=== PATIENT | male | born 1975 | race Asian ===

== ENCOUNTER 2016-10-31 16:27 | Emergency (ER) | payer SELFPAY ==
[~2016-10-31] VITALS: Ht 167.6 cm; Wt 70.0 kg
[2016-10-31 16:29] VITALS: BP 129/77; PULSE 84; RESP 16; TEMP 99.1; O2SAT 99
[2016-10-31 17:53] VITALS: BP 130/82; PULSE 101; RESP 16; O2SAT 99
[2016-10-31] MEDS ORDERED: SODIUM CHLORIDE 0.9% FLUSH 10 ML FLUSH IV FLUSH PRN (19:00)
[2016-10-31 19:24] LABS: AUTOMATED NEUTROPHIL # 13.2 TH/MM3 (1.8-7.7); BASOPHIL # 0.1 TH/MM3 (0-0.2); BASOPHIL % 0.6 % (0.0-2.0); EOSINOPHIL % 0.3 % (0.0-4.0); HEMATOCRIT 41.5 % (39.0-51.0); LYMPH % 14.3 % (9.0-44.0); LYMPHOCYTE # 2.4 TH/MM3 (1.0-4.8); MEAN CELL VOLUME 85.6 FL (80.0-100.0); MEAN CORPUSCULAR HEMOGLOBIN 30.5 PG (27.0-34.0); MEAN CORPUSCULAR HGB CONC 35.6 % (32.0-36.0); MONO % 6.2 % (0.0-8.0); NEUT % 78.6 % (16.0-70.0); PLATELET COUNT 222 TH/MM3 (150-450); RED BLOOD COUNT 4.85 MIL/MM3 (4.50-5.90); RED CELL DISTRIBUTION WIDTH 13.5 % (11.6-17.2); WHITE BLOOD COUNT 16.8 TH/MM3 (4.0-11.0)
[2016-10-31 19:26] LABS: HEMO FLAGS AUTO DIFF
[2016-10-31 19:38] LABS: INTERNATIONAL NORMALIZED RATIO 0.9 RATIO; PROTHROMBIN TIME - PATIENT 10.1 SEC (9.8-11.6)
--- NOTE | 2016-10-31 19:45 | RADRPT ---
EXAM DATE/TIME: 10/31/2016 19:13 [place] COMPARISON: No previous studies available for comparison. INDICATIONS : Rectal bleeding for four days IV CONTRAST: 72 cc Omnipaque 350 (iohexol) IV ORAL CONTRAST: No oral contrast ingested. RADIATION DOSE: 11.65 CTDIvol (mGy) MEDICAL HISTORY : hemorrhoids SURGICAL HISTORY : None. ENCOUNTER: Initial ACUITY: 4 - 6 days PAIN SCALE: 3/10 LOCATION: pelvis TECHNIQUE: Volumetric scanning of the pelvis was performed. Using automated exposure control and adjustment of the mA and/or kV according to patient size, radiation dose was kept as low as reasonabl y achievable to obtain optimal diagnostic quality images. DICOM format image data is available elec tronically for review and comparison. FINDINGS: BOWEL/MESENTERY: There are significant inflammatory changes within the pelvis surrounding the rec tawny with inflammatory stranding noted. There are 2 rim enhancing fluid collections along the posterio r and right lateral aspects of the rectum measuring 3 x 2.8 cm in AP and transverse dimension, and 1. 8 x 1.4 cm in AP and transverse dimension respectively on axial image 33. On axial image 36 these syeda ear contiguous along the posterior and lateral aspect of the rectum. The remainder the visualized bow el is unremarkable. BLADDER: There is no wall thickening or mass. RETROPERITONEUM: There is no aneurysm or lymphadenopathy. REPRODUCTIVE: Within normal limits. INGUINAL: There is no lymphadenopathy or hernia. MUSCULOSKELETAL: Within normal limits for patient age. CONCLUSION: Rim-enhancing fluid collections are seen at the level of the rectum with associated inflammatory stra nding. Perirectal abscess suspected. Yoan Hess MD on October 31, 2016 at 19:41 Board Certified Radiologist. This report was verified electronically.
[2016-10-31 19:46] LABS: BICARBONATE 24.9 MEQ/L (21.0-32.0); POTASSIUM 3.8 MEQ/L (3.5-5.1)
[2016-10-31] MEDS ORDERED: IOHEXOL 350 MG/ML 10 ML VIAL (for RAD DIAG) IV ONE (19:57)
--- NOTE | 2016-10-31 19:58 | PD ---
HPI Chief Complaint: GI Complaint Time Seen by Provider: 18:30 Travel History International Travel<30 days: No Contact w/Intl Traveler<30days: No Traveled to known affect area: No History of Present Illness HPI Patient is a 41-year-old male presenting to emergency Department for evaluation of rectal pain and bleeding. Patient has had 2 episodes of bright red blood in his stool over the last 4 days. He reports a history of the same associated with hemorrhoids. He reports the pain today is an 8 out of 10, it's worse than it had been in the past. The last time he had any hemorrhoid issues was 6-7 months ago when he was in [place]. He denies any straining, nausea, vomiting, fever, chills, abdominal pain. He states the rectal pain is constant, worse when he sits. He has been using suppositories that he had been given previously. He denies any significant past medical history, anal intercourse. PFSH Past Medical History Medical History: Denies Significant Hx Gastrointestinal Disorders: Yes (HEMORRHOIDS) Influenza Vaccination: No Past Surgical History Surgical History: No Previous Surgery Social History Alcohol Use: Yes (OCCASIONALLY) Tobacco Use: Yes (1 PPD) Substance Use: No Allergies-Medications (Allergen,Severity, Reaction): Coded Allergies: No Known Allergies (Unverified , 10/31/16) Reported Meds & Prescriptions Reported Meds & Active Scripts Active No Active Prescriptions or Reported Medications Review of Systems Except as stated in HPI: all other systems reviewed are Neg Gastrointestinal: Positive: Other (rectal pain, brb) Physical Exam Narrative GENERAL: Well-developed, well-nourished, alert male. Resting comfortably in no acute distress. SKIN: Focused skin assessment warm/dry. HEAD: Atraumatic. Normocephalic. EYES: Pupils equal and round. No scleral icterus. No injection or drainage. ENT: No nasal bleeding or discharge. Mucous membranes pink and moist. NECK: Trachea midline. No JVD. CARDIOVASCULAR: Regular rate and rhythm. No murmur appreciated. RESPIRATORY: No accessory muscle use. Clear to auscultation. Breath sounds equal bilaterally. GASTROINTESTINAL: Abdomen soft, non-tender, nondistended. Hepatic and splenic margins not palpable. RECTAL EXAM: Tenderness noted on digital examination to the 12 o'clock position , there is a firm palpable area in this position. No dark or tar like stools noted, no obvious hemorrhoids. MUSCULOSKELETAL: No obvious deformities. No clubbing. No cyanosis. No edema. NEUROLOGICAL: Awake and alert. No obvious cranial nerve deficits. Motor grossly within normal limits. Normal speech. PSYCHIATRIC: Appropriate mood and affect; insight and judgment normal. Data Data Last Documented VS Vital Signs Date Time Temp Pulse Resp B/P Pulse Ox O2 Delivery O2 Flow Rate FiO2 10/31/16 17:53 101 16 130/82 99 Room Air 10/31/16 16:29 99.1 Orders Basic Metabolic Panel (Bmp) (10/31/16 18:48) Complete Blood Count With Diff (10/31/16 18:48) Prothrombin Time / Inr (Pt) (10/31/16 18:48) Act Partial Throm Time (Ptt) (10/31/16 18:48) Iv Access Insert/Monitor (10/31/16 18:48) Ecg Monitoring (10/31/16 18:48) Oximetry (10/31/16 18:48) Sodium Chloride 0.9% Flush (Ns Flush) (10/31/16 19:00) Ct Pelvis W Iv Contrast(Rout) (10/31/16 ) Iohexol 350 Inj (Omnipaque 350 Inj) (10/31/16 19:57) Ciprofloxacin 400 Mg Premix (Cipro 400 M (10/31/16 20:15) Metronidazole 500 Mg Inj (Flagyl 500 Mg (10/31/16 20:15) Labs Laboratory Tests Test 10/31/16 18:55 White Blood Count 16.8 TH/MM3 Red Blood Count 4.85 MIL/MM3 Hemoglobin 14.8 GM/DL Hematocrit 41.5 % Mean Corpuscular Volume 85.6 FL Mean Corpuscular Hemoglobin 30.5 PG Mean Corpuscular Hemoglobin 35.6 % Concent Red Cell Distribution Width 13.5 % Platelet Count 222 TH/MM3 Mean Platelet Volume 8.4 FL Neutrophils (%) (Auto) 78.6 % Lymphocytes (%) (Auto) 14.3 % Monocytes (%) (Auto) 6.2 % Eosinophils (%) (Auto) 0.3 % Basophils (%) (Auto) 0.6 % Neutrophils # (Auto) 13.2 TH/MM3 Lymphocytes # (Auto) 2.4 TH/MM3 Monocytes # (Auto) 1.0 TH/MM3 Eosinophils # (Auto) 0.0 TH/MM3 Basophils # (Auto) 0.1 TH/MM3 CBC Comment AUTO DIFF Prothrombin Time 10.1 SEC Prothromb Time International 0.9 RATIO Ratio Activated Partial 30.0 SEC Thromboplast Time Sodium Level 137 MEQ/L Potassium Level 3.8 MEQ/L Chloride Level 105 MEQ/L Carbon Dioxide Level 24.9 MEQ/L Anion Gap 7 MEQ/L Blood Urea Nitrogen 11 MG/DL Creatinine 0.79 MG/DL Estimat Glomerular Filtration 107 ML/MIN Rate Random Glucose 87 MG/DL Calcium Level 8.4 MG/DL [facility] Medical Decision Making Medical Screen Exam Complete: Yes Emergency Medical Condition: Yes Interpretation(s) Last Impressions Pelvis CT 10/31/16 0000 Signed Impressions: Service Date/Time: Monday, October 31, 2016 19:13 - CONCLUSION: Rim-enhancing fluid collections are seen at the level of the rectum with associated inflammatory stranding. Perirectal abscess suspected. Yoan Hess MD Laboratory Tests Test 10/31/16 18:55 White Blood Count 16.8 TH/MM3 Red Blood Count 4.85 MIL/MM3 Hemoglobin 14.8 GM/DL Hematocrit 41.5 % Mean Corpuscular Volume 85.6 FL Mean Corpuscular Hemoglobin 30.5 PG Mean Corpuscular Hemoglobin 35.6 % Concent Red Cell Distribution Width 13.5 % Platelet Count 222 TH/MM3 Mean Platelet Volume 8.4 FL Neutrophils (%) (Auto) 78.6 % Lymphocytes (%) (Auto) 14.3 % Monocytes (%) (Auto) 6.2 % Eosinophils (%) (Auto) 0.3 % Basophils (%) (Auto) 0.6 % Neutrophils # (Auto) 13.2 TH/MM3 Lymphocytes # (Auto) 2.4 TH/MM3 Monocytes # (Auto) 1.0 TH/MM3 Eosinophils # (Auto) 0.0 TH/MM3 Basophils # (Auto) 0.1 TH/MM3 CBC Comment AUTO DIFF Vital Signs Date Time Temp Pulse Resp B/P Pulse Ox O2 Delivery O2 Flow Rate FiO2 10/31/16 17:53 101 16 130/82 99 Room Air 10/31/16 16:29 99.1 84 16 129/77 99 Differential Diagnosis Hemorrhoid versus GI bleed versus abscess versus other Narrative Course Patient is a 38-year-old male presenting to emergency for evaluation of rectal pain. Patient's vital signs are stable, on exam there was noted to be an area of fluctuance which prompted imaging. CBC with an elevated white count at 16.8 with left shift, chemistry and coags are unremarkable. CT scan of the pelvis shows premature changes within the pelvis surrounding the rectum with inflammatory stranding noted. There are 2 women enhancing fluid collections along the posterior and right lateral aspects of the rectum measuring 3 x 2.8 cm and 1.8 x 1.4 cm. They appear contiguous along the posterior lateral aspect of the rectum. Patient was given dose of IV metronidazole and ciprofloxacin. Discussed with general surgery who recommended patient follow-up with colorectal surgeon. Patient will be referred to colorectal surgery as outpatient. A mandatory referral has been made for patient. He was also given a short course of oral pain medications. Patient verbalized understanding of discharge instructions, follow-up, medications. He was advised to return to emergency department immediately for any new or worsening symptoms. Patient is stable for discharge. Diagnosis Primary Impression: Perirectal abscess Referrals: Colon Rectal Specialist 1 day Patient Instructions: General Instructions, Rectal Abscess (ED) Additional Instructions: Follow up with a colorectal surgeon A mandatory referral has been made for you Complete full course of antibiotics as prescribed Return to emergency department for any new or worsening symptoms Med/Other Pt SpecificInfo: Prescription(s) given Scripts Tramadol 50 Mg Tab50 Mg PO Q8H PRN (PAIN) #10 TAB Ref 0 Prov:Jose Rojas MD 10/31/16 Ciprofloxacin 500 Mg [id number] Mg PO BID 10 Days Ref 0 Prov:Beatris No 10/31/16 Metronidazole 500 Mg [id number] Mg PO TID 10 Days Ref 0 Prov:Beatris No 10/31/16 Disposition: 01 DISCHARGE HOME Condition: Stable Beatris No Oct 31, 2016 19:58
[2016-10-31] MEDS ORDERED: metroNIDAZOLE 500 MG INJ 100 ML IV ONE (20:15)
[2016-10-31] MEDS ORDERED: CIPROFLOXACIN 400 MG PREMIX 200 ML IV ONE (20:15)
[2016-10-31] MEDS ORDERED: CIPR500T2 PO (20:16)
[2016-10-31] MEDS ORDERED: METR500T10 PO (20:16)
[2016-10-31] MEDS ORDERED: TRAM50TA PO (20:16)
[2016-10-31 20:24] LABS: SCAN/DIFF AUTO DIFF CONFIRMED
--- NOTE | 2016-10-31 20:39 | PD ---
Data Data Last Documented VS Vital Signs Date Time Temp Pulse Resp B/P Pulse Ox O2 Delivery O2 Flow Rate FiO2 10/31/16 17:53 101 16 130/82 99 Room Air 10/31/16 16:29 99.1 Orders Basic Metabolic Panel (Bmp) (10/31/16 18:48) Complete Blood Count With Diff (10/31/16 18:48) Prothrombin Time / Inr (Pt) (10/31/16 18:48) Act Partial Throm Time (Ptt) (10/31/16 18:48) Iv Access Insert/Monitor (10/31/16 18:48) Ecg Monitoring (10/31/16 18:48) Oximetry (10/31/16 18:48) Sodium Chloride 0.9% Flush (Ns Flush) (10/31/16 19:00) Ct Pelvis W Iv Contrast(Rout) (10/31/16 ) Iohexol 350 Inj (Omnipaque 350 Inj) (10/31/16 19:57) Ciprofloxacin 400 Mg Premix (Cipro 400 M (10/31/16 20:15) Metronidazole 500 Mg Inj (Flagyl 500 Mg (10/31/16 20:15) Mandatory Outpatient Referral (10/31/16 20:17) Labs Laboratory Tests Test 10/31/16 18:55 White Blood Count 16.8 TH/MM3 Red Blood Count 4.85 MIL/MM3 Hemoglobin 14.8 GM/DL Hematocrit 41.5 % Mean Corpuscular Volume 85.6 FL Mean Corpuscular Hemoglobin 30.5 PG Mean Corpuscular Hemoglobin 35.6 % Concent Red Cell Distribution Width 13.5 % Platelet Count 222 TH/MM3 Mean Platelet Volume 8.4 FL Neutrophils (%) (Auto) 78.6 % Lymphocytes (%) (Auto) 14.3 % Monocytes (%) (Auto) 6.2 % Eosinophils (%) (Auto) 0.3 % Basophils (%) (Auto) 0.6 % Neutrophils # (Auto) 13.2 TH/MM3 Lymphocytes # (Auto) 2.4 TH/MM3 Monocytes # (Auto) 1.0 TH/MM3 Eosinophils # (Auto) 0.0 TH/MM3 Basophils # (Auto) 0.1 TH/MM3 CBC Comment AUTO DIFF Differential Comment AUTO DIFF CONFIRMED Prothrombin Time 10.1 SEC Prothromb Time International 0.9 RATIO Ratio Activated Partial 30.0 SEC Thromboplast Time Sodium Level 137 MEQ/L Potassium Level 3.8 MEQ/L Chloride Level 105 MEQ/L Carbon Dioxide Level 24.9 MEQ/L Anion Gap 7 MEQ/L Blood Urea Nitrogen 11 MG/DL Creatinine 0.79 MG/DL Estimat Glomerular Filtration 107 ML/MIN Rate Random Glucose 87 MG/DL Calcium Level 8.4 MG/DL MDM Supervised Visit with NIKOLE: Yes Narrative Course The history, exam, and medical decision-making in the associated mid-level provider note were completed with my assistance. I reviewed and agree with the findings presented. I attest that I had a [id number] encounter with the patient on the same day, and personally performed and documented my assessment and findings in the medical record. *My assessment and Findings: 41-year-old man: Well-appearing, or perirectal abscess. Little bit of bleeding and pain. CT scan from small perirectal abscess. I spoke with Dr. Leonardo camarena through a proxy as he was operating at the time. 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 There is no on-call for colorectal. He states perirectal abscesses or not in his purview. We'll treat with antibiotics. We'll recommend a referral for colorectal surgery. Diagnosis Primary Impression: Perirectal abscess Referrals: Colon Rectal Specialist 1 day Patient Instructions: General Instructions, Rectal Abscess (ED) Additional Instruction: Follow up with a colorectal surgeon A mandatory referral has been made for you Complete full course of antibiotics as prescribed Return to emergency department for any new or worsening symptoms Scripts Tramadol 50 Mg Tab50 Mg PO Q8H PRN (PAIN) #10 TAB Ref 0 Prov:Jose Rojas MD 10/31/16 Ciprofloxacin 500 Mg [id number] Mg PO BID 10 Days Ref 0 Prov:Beatris No 10/31/16 Metronidazole 500 Mg [id number] Mg PO TID 10 Days Ref 0 Prov:Beatris No 10/31/16 Disposition: 01 DISCHARGE HOME Condition: Stable Jose Rojas MD Oct 31, 2016 20:39
[2016-10-31 22:00] VITALS: BP 124/68; PULSE 82; RESP 16; O2SAT 98
[2016-10-31] MEDS ORDERED: ACETAMINOPHEN/HYDROcodone 325 MG/5 MG TAB PO ONE (22:45)
== END 2016-10-31 22:48 | disposition home or self-care (01) ==
LOC: NEPE 16:27
DX: K61.1 Rectal abscess (principal); K92.1 Melena
CPT/HCPCS: 72193; 80048; 85025; 85610; 85730; 96365; 96367; 99285; J0744; Q9967

== ENCOUNTER 2016-11-04 08:11 | Inpatient (IN) | payer SELFPAY ==
[~2016-11-04] VITALS: Ht 170.2 cm; Wt 70.0 kg
[~2016-11-04 08:11] MED LIST: CIPR500T2 PO; METR500T10 PO; TRAM50TA PO
[2016-11-04 08:15] VITALS: BP 124/77; PULSE 95; RESP 16; TEMP 98.3; O2SAT 98
--- NOTE | 2016-11-04 08:58 | PD ---
HPI Chief Complaint: Complaint Time Seen by Provider: 08:41 Travel History International Travel<30 days: No Contact w/Intl Traveler<30days: No Traveled to known affect area: No History of Present Illness HPI This is a 41-year-old male who presents with complaints of rectal pain. The patient was seen here Monday and diagnosed with a rectal abscess. The patient was given antibiotics and pain medication. He reports that it's gotten worse and now he is having difficulty having bowel movement and urinating. He reports subjective fevers, no chills. He denies any nausea vomiting. He states she's taken all his medications as prescribed. He states now he is not able to sit secondary to the severe pain. PFSH Past Medical History Gastrointestinal Disorders: Yes (HEMORRHOIDS) Social History Alcohol Use: Yes (OCCASIONALLY) Tobacco Use: Yes (1 PPD) Substance Use: No Allergies-Medications (Allergen,Severity, Reaction): Coded Allergies: No Known Allergies (Unverified , 10/31/16) Reported Meds & Prescriptions Reported Meds & Active Scripts Active Tramadol (Tramadol HCl) 50 Mg Tab 50 Mg PO Q8H PRN Ciprofloxacin (Ciprofloxacin HCl) 500 Mg Tab 500 Mg PO BID 10 Days Metronidazole 500 Mg Tab 500 Mg PO TID 10 Days Review of Systems Except as stated in HPI: all other systems reviewed are Neg General / Constitutional: Positive: Fever, No: Chills HENT: No: Headaches, Lightheadedness Cardiovascular: No: Chest Pain or Discomfort, Palpitations Respiratory: No: Cough, Shortness of Breath Gastrointestinal: Positive: Changes in Bowel Habits (occultly having bowel movements), Other (rectal pain. Worse on the right perirectal area.), No: Nausea, Vomiting Genitourinary: Positive: Other (difficulty urinating secondary to the pain.) Musculoskeletal: No: Weakness, Pain Skin: No Rash Neurologic: No: Weakness, Dizziness, Headache Physical Exam Narrative GENERAL: Well-nourished, well-developed patient, in no acute respiratory distress. SKIN: Focused skin assessment warm/dry. HEAD: Normocephalic/atraumatic. EYES: No scleral icterus. No injection or drainage. NECK: Supple, trachea midline. CARDIOVASCULAR: Regular rate and rhythm without murmurs, gallops, or rubs. RESPIRATORY: Breath sounds equal bilaterally. No accessory muscle use. GASTROINTESTINAL: Abdomen soft, non-tender, nondistended. RECTAL EXAM: No obvious induration. The patient does have tenderness in his right buttock cheek near his rectum. He reports these pain is severe and internally. He asked side not do a rectal exam secondary to severe pain. MUSCULOSKELETAL: No cyanosis, or edema. BACK: Nontender without obvious deformity. No CVA tenderness. NEUROLOGICAL: Awake and alert. Cranial nerves II through XII intact. Motor grossly within normal limits. Five out of 5 muscle strength in all muscle groups. Normal speech. Data Data Last Documented VS Vital Signs Date Time Temp Pulse Resp B/P Pulse Ox O2 Delivery O2 Flow Rate FiO2 11/04/16 08:15 98.3 95 16 124/77 98 Orders Complete Blood Count With Diff (11/04/16 08:43) Basic Metabolic Panel (Bmp) (11/04/16 08:43) Prothrombin Time / Inr (Pt) (11/04/16 08:43) Act Partial Throm Time (Ptt) (11/04/16 08:43) Blood Culture (11/04/16 08:43) Levofloxacin 500 Mg Premix Inj (Levaquin (11/04/16 09:00) Metronidazole 500 Mg Inj (Flagyl 500 Mg (11/04/16 09:00) Labs Laboratory Tests Test 11/04/16 08:50 White Blood Count 15.9 TH/MM3 Red Blood Count 4.90 MIL/MM3 Hemoglobin 14.5 GM/DL Hematocrit 41.8 % Mean Corpuscular Volume 85.3 FL Mean Corpuscular Hemoglobin 29.6 PG Mean Corpuscular Hemoglobin 34.7 % Concent Red Cell Distribution Width 13.4 % Platelet Count 248 TH/MM3 Mean Platelet Volume 8.2 FL Neutrophils (%) (Auto) 82.7 % Lymphocytes (%) (Auto) 8.5 % Monocytes (%) (Auto) 8.5 % Eosinophils (%) (Auto) 0.1 % Basophils (%) (Auto) 0.2 % Neutrophils # (Auto) 13.2 TH/MM3 Lymphocytes # (Auto) 1.4 TH/MM3 Monocytes # (Auto) 1.4 TH/MM3 Eosinophils # (Auto) 0.0 TH/MM3 Basophils # (Auto) 0.0 TH/MM3 CBC Comment DIFF FINAL Differential Comment Prothrombin Time 11.6 SEC Prothromb Time International 1.0 RATIO Ratio Activated Partial 31.0 SEC Thromboplast Time Sodium Level 133 MEQ/L Potassium Level 3.4 MEQ/L Chloride Level 99 MEQ/L Carbon Dioxide Level 22.0 MEQ/L Anion Gap 12 MEQ/L Blood Urea Nitrogen 8 MG/DL Creatinine 0.84 MG/DL Estimat Glomerular Filtration 100 ML/MIN Rate Random Glucose 115 MG/DL Calcium Level 8.6 MG/DL MDM Medical Decision Making Medical Screen Exam Complete: Yes Emergency Medical Condition: Yes Differential Diagnosis Worsening perianal abscess versus internal hemorrhoid versus anal fissure Narrative Course 0-2[age] male presents today with complaints of worsening rectal pain. The patient was diagnosed with a perirectal abscess on Monday. He started on Flagyl and ciprofloxacin. He reports the pain has continued to worsen. He reports now he is having difficulty having a bowel movement or urinating secondary to the pain. He reports subjective fevers. No chills. The patient has a white count of 15,000. CT scan for Monday showed a ring-enhancing perirectal abscess. Case was discussed with Dr. Reyes who was gracious enough to come in to see the patient and will take the patient to the operating room. The patient has been given Levaquin and Flagyl. He is nothing by mouth. Diagnosis Primary Impression: perirectal abscess, failed outpatient treatment Additional Impressions: Leukocytosis Hypokalemia Admitting Information Admitting Physician Requests: Admit Aren Degroot MD Nov 04, 2016 08:57
[2016-11-04] MEDS ORDERED: LEVOFLOXACIN 500 MG PREMIX INJ 100 ML IV ONE (09:00)
[2016-11-04] MEDS ORDERED: metroNIDAZOLE 500 MG INJ 100 ML IV ONE (09:00)
[2016-11-04 09:07] LABS: AUTOMATED NEUTROPHIL # 13.2 TH/MM3 (1.8-7.7); BASOPHIL % 0.2 % (0.0-2.0); EOSINOPHIL % 0.1 % (0.0-4.0); HEMATOCRIT 41.8 % (39.0-51.0); HEMO FLAGS DIFF FINAL; LYMPH % 8.5 % (9.0-44.0); LYMPHOCYTE # 1.4 TH/MM3 (1.0-4.8); MEAN CELL VOLUME 85.3 FL (80.0-100.0); MEAN CORPUSCULAR HEMOGLOBIN 29.6 PG (27.0-34.0); MEAN CORPUSCULAR HGB CONC 34.7 % (32.0-36.0); MONO % 8.5 % (0.0-8.0); NEUT % 82.7 % (16.0-70.0); PLATELET COUNT 248 TH/MM3 (150-450); RED CELL DISTRIBUTION WIDTH 13.4 % (11.6-17.2); WHITE BLOOD COUNT 15.9 TH/MM3 (4.0-11.0)
[2016-11-04 09:17] LABS: PROTHROMBIN TIME - PATIENT 11.6 SEC (9.8-11.6)
[2016-11-04 09:34] LABS: POTASSIUM 3.4 MEQ/L (3.5-5.1)
[2016-11-04] MEDS ORDERED: PROPOFOL 200 MG/20 ML AMP IV ONE (12:00)
[2016-11-04] MEDS ORDERED: ONDANSETRON HCL 4 MG/2 ML VIAL IV PUSH ONE (12:00)
[2016-11-04] MEDS ORDERED: KETOROLAC TROMETHAMINE 60 MG/2 ML (IM) VIAL IM ONE (12:00)
[2016-11-04] MEDS ORDERED: FAMOTIDINE 20 MG/2 ML VIAL ONE (14:47)
[2016-11-04] MEDS ORDERED: MIDAZOLAM HCL 2 MG/2 ML VIAL ONE (14:47)
[2016-11-04] MEDS ORDERED: DO NOT ADM ANY ANTICOAGULANT DRUGS PRN (15:36)
[2016-11-04] MEDS ORDERED: fentaNYL CITRATE 250 MCG/5 ML AMP ONE (15:40)
[2016-11-04] MEDS ORDERED: ONDANSETRON HCL 4 MG/2 ML VIAL IV PRN (15:45)
[2016-11-04] MEDS ORDERED: MORPHINE SULFATE 4 MG/ML INJ IV PRN (15:45)
[2016-11-04] MEDS ORDERED: NALOXONE HCL 0.4 MG/ML AMP IV PRN (15:45)
[2016-11-04] MEDS ORDERED: SODIUM CHLORIDE 0.9% FLUSH 10 ML FLUSH IV FLUSH PRN (15:45)
[2016-11-04] MEDS ORDERED: Post-op Orders (for Pharmacy) MISC XX ONE (15:45)
[2016-11-04] MEDS ORDERED: *MEPERIDINE 25 MG INJ VIAL PERIprocedural Use ONLY ONE (15:46)
[2016-11-04 16:48] VITALS: BP 119/74; PULSE 116; RESP 17; TEMP 98.7; O2SAT 96
[2016-11-04] MEDS: metroNIDAZOLE 500 MG INJ 100 ML IV SCH (17:12)
[2016-11-04 20:00] VITALS: BP 89/50; PULSE 110; RESP 20; TEMP 97.5; O2SAT 95
[2016-11-04] MEDS: SODIUM CHLORIDE 0.9% FLUSH 10 ML FLUSH IV FLUSH SCH (20:41)
[2016-11-04 20:43] VITALS: O2SAT 96
[2016-11-05] VITALS: BP 96/55; PULSE 92; RESP 20; TEMP 100.7; O2SAT 97
[2016-11-05] MEDS: metroNIDAZOLE 500 MG INJ 100 ML IV SCH ×2 (01:21→10:30)
[2016-11-05] MEDS: oxyCODONE/ACETAMINOPHEN 5 MG/325 MG TAB PO PRN ×3 (01:21→16:33)
[2016-11-05 08:19] VITALS: BP 107/72; PULSE 88; RESP 16; TEMP 98.7; O2SAT 98
[2016-11-05] MEDS: SODIUM CHLORIDE 0.9% FLUSH 10 ML FLUSH IV FLUSH SCH (09:00)
[2016-11-05 09:32] VITALS: O2SAT 99
[2016-11-05] MEDS ORDERED: LEVOFLOXACIN 500 MG PREMIX INJ 100 ML IV SCH (10:00)
[2016-11-05 12:00] VITALS: BP 104/61; PULSE 78; RESP 16; TEMP 97.7; O2SAT 96
[2016-11-05] MEDS ORDERED: OXYC1TAB63 PO (13:51)
[2016-11-05] MEDS ORDERED: AUGM875T3 PO (13:53)
[2016-11-05] MEDS ORDERED: METR-1 PO (13:56)
--- NOTE | 2016-11-05 15:11 | PD.CAR.PN ---
CVT Progress Note Subjective/Hospital Course: Patient is status post large perirectal abscess drainage Packing has been removed Incision is clean and with minimal drainage Purulent drainage will continue for another few days because this was a big cavity filled with pus Patient will be discharged today with instructions to take sitz baths on by mouth antibiotics and pain medication Follow-up with me in about 2 weeks Objective: Vital Signs Date Time Temp Pulse Resp B/P Pulse Ox O2 Delivery O2 Flow Rate FiO2 11/05/16 12:00 97.7 78 16 104/61 96 11/05/16 09:32 99 21 11/05/16 08:19 98.7 88 16 107/72 98 11/05/16 00:00 100.7 92 20 96/55 97 11/04/16 20:43 96 21 11/04/16 20:00 97.5 110 20 89/50 95 11/04/16 16:48 98.7 116 17 119/74 96 11/04/16 16:27 16 11/04/16 16:25 99.5 105 16 138/87 97 Room Air 11/04/16 16:15 98 16 149/88 96 Room Air 11/04/16 16:00 99 16 163/99 98 Nasal Cannula 2 11/04/16 15:45 105 17 158/99 100 Nasal Cannula 3 11/04/16 15:35 99.2 113 18 128/84 99 Nasal Cannula 3 Result Diagram: 11/04/16 0850 11/04/16 0850 Judy Reyes MD Nov 05, 2016 15:10
[2016-11-05 16:00] VITALS: BP 106/64; PULSE 81; RESP 16; TEMP 97.8; O2SAT 96
--- NOTE | 2016-11-05 16:02 | MH ---
cc: MD MELINDA,JUDY DATE OF ADMISSION: 11/04/2016 ADMITTING DIAGNOSIS: Perirectal abscess, rectal pain. HISTORY OF PRESENT ILLNESS: This 41-year-old male presented to the emergency room with pain in the buttock and the rectum as well as difficulty voiding. He states that this has been going on now for about a week. He initially presented five days ago to the same emergency room and was noted to have a small perirectal abscess and was placed on p.o. antibiotics, which should have been sufficient yet this got bigger and now the patient has more problems. Repeat CT scan reveals a large abscess located in the retrorectal space just above midline and slightly to the left just below the levator level. I am consulted to see the patient for the same purpose. PAST MEDICAL AND SURGICAL HISTORY: Negative. ALLERGIES: No allergies. MEDICATIONS: No medications. SOCIAL HISTORY: His social history is noncontributory. The patient works as a croupier in a gambling establishment. PHYSICAL EXAMINATION: GENERAL: The physical examination reveals 41-year-old male in no acute distress. HEAD, EYES, EARS, NOSE, THROAT: Normocephalic. No trauma to the head. Pupils equal and reactive. Extraocular muscles intact. NECK: The neck is supple. Bilateral carotid pulses. No bruits. CHEST: Clear. Bilateral breath sounds. HEART: Regular rhythm. ABDOMEN: Soft. Active bowel sounds. PELVIS: Stable. EXTREMITIES: Within normal limits. RECTAL: Rectal exam reveals a very very tender area in the posterior rectal area; however, from outside, there is no visible swelling. This abscess is so high that it obviously does not show from the outside. The patient will be taken to the operating room for drainage of the abscess, which is going to be performed alongside the coccyx posteriorly in the posterior rectal space. The patient will probably spend the night in the hospital. Judy LINDSAY/SHAGUFTA /3:14 PM /3:59 PM
--- NOTE | 2016-11-06 21:17 | MP ---
cc: MD MELINDA,YOMI DATE OF SURGERY: 11/04/2016. PREOPERATIVE DIAGNOSIS: Perirectal high sub-levator abscess. POSTOPERATIVE DIAGNOSIS: Perirectal high sub-levator abscess. OPERATIVE PROCEDURE PERFORMED: Incision and drainage of a perirectal abscess. SURGEON: Yomi Reyes M.D. ANESTHESIA: General. ESTIMATED BLOOD LOSS: 10 cc. DESCRIPTION OF THE PROCEDURE IN DETAIL: The patient was prepped and draped in the usual fashion in [facility]. The digital rectal exam was first carried out. The patient had indeed bulging of the posterior wall of the rectum, which is consistent with the location of the abscess, which is septated in the midline slightly to the left. A 1-1/2 inch incision was now made over the coccyx tip and then deepened down alongside the coccyx bone with Metzenbaum scissors and cutting the coccygeal ligament. Now with a Isabella, the abscess was entered straight in while holding the finger in the rectum to make sure we did not make a hole in the rectum. Immediately under pressure, about 60 to 70 cc of purulent material escaped. This was cultured for aerobes and anaerobes. The cavity was now opened up with a finger and then irrigated with copious amounts of saline. One inch Iodoform packing was placed. Dressing applied. The patient tolerated the procedure well. Yomi LINDSAY/SHAGUFTA /3:47 PM /9:14 PM
== END 2016-11-05 17:20 | disposition home or self-care (01) | DRG 346 ==
LOC: NEPC 08:11 → NEDA 10:43 → N07B 16:36
PROVIDERS: ADMIT Surgery; ATTEND Surgery
PROC: 0D9P0ZZ Drainage of Rectum, Open Approach (ICD-10-PCS; principal; 2016-11-04 14:49)
DX: K61.1 Rectal abscess (principal)
CPT/HCPCS: 80048; 85025; 85610; 85730; 87015; 87040; 87070; 87077; 87102; 87116; 87185; 87186; 87205; 87206; 94150; 96365; 96367; J1885; J1956; J2175; J2250; J2270; J2405; J3010